=== PATIENT | male | born 1970 | race American Indian/Alaskan Native ===

== ENCOUNTER 2018-02-27 01:04 | Emergency (ER) | payer SELFPAY ==
[2018-02-27 05:51] VITALS: BP 139/81
--- NOTE | 2018-02-27 06:07 | Emergency Department Report ---
ED General Adult HPI - General Chief complaint: Headache Stated complaint: DIZZINESS; BLURRED VISION; RAPID HEARTBEAT Time Seen by Provider: 02/27/18 06:03 Source: patient Mode of arrival: Ambulatory Limitations: No Limitations - History of Present Illness Initial comments: 47-year-old -[place] male comes in for evaluation of chronic migraines causing blurred vision dizziness. Patient also reports that he has intermittent times that he feels his heart is racing he reports this depends on his body position and Karlee sitting in the chair. These symptoms have been going on for the last 5 years. Patient reports he has a past medical history as well as the current history of anxiety and depression. Patient reports that he is on BuSpar which she has not taken in the last few days. Patient reports he has a follow-up appointment in about a month at [facility] on [address] He denies any homicidal or suicidal ideation. Patient then reports that his blurred vision he feels is because he needs glasses. He reports that he was given glasses in the past but felt they were too strong and did not wear them anymore. -: year(s) (5) Severity scale (0 -10): 0 Consistency: intermittent Improves with: medication Worsens with: none Associated Symptoms: denies: nausea/vomiting Treatments Prior to Arrival: none - Related Data Home Medications Medication Instructions Recorded Confirmed Last Taken Cetirizine HCl [Zyrtec] 10 mg PO 02/02/14 02/02/14 Unknown Previous Rx's Medication Instructions Recorded Last Taken Type ALPRAZolam [Xanax TAB] 0.5 mg PO TID PRN #15 tab 09/17/15 Unknown Rx Escitalopram [Lexapro] 10 mg PO DAILY #20 tablet 09/17/15 Unknown Rx Ibuprofen [Motrin 600 MG tab] 600 mg PO Q8H PRN #30 tablet 02/27/18 Unknown Rx Allergies Allergy/AdvReac Type Severity Reaction Status Date / Time No Known Allergies Allergy Unverified 02/02/14 21:35 ED Review of Systems ROS: Stated complaint: DIZZINESS; BLURRED VISION; RAPID HEARTBEAT Other details as noted in HPI Constitutional: denies: chills, fever Eyes: denies: eye pain, eye discharge, vision change ENT: other (blurred vision not currently). denies: ear pain, throat pain Respiratory: denies: cough, shortness of breath, wheezing Cardiovascular: denies: chest pain, palpitations Endocrine: no symptoms reported Gastrointestinal: denies: abdominal pain, nausea, diarrhea Genitourinary: denies: urgency, dysuria Musculoskeletal: denies: back pain, joint swelling, arthralgia Skin: denies: rash, lesions Neurological: headache (no pain at this time). denies: weakness, paresthesias Psychiatric: anxiety (taken BuSpar prescribed by [place] [facility]), depression (followed by mental health at [place]). denies: auditory hallucinations, visual hallucinations, suicidal thoughts Hematological/Lymphatic: denies: easy bleeding, easy bruising ED Past Medical Hx - Past Medical History Previous Medical History?: Yes Hx Hypertension: Yes (does not take meds) Hx Headaches / Migraines: Yes Hx Psychiatric Treatment: Yes (anxiety) - Surgical History Past Surgical History?: No - Social History Smoking Status: Never Smoker Substance Use Type: None - Medications Home Medications: Home Medications Medication Instructions Recorded Confirmed Last Taken Type Cetirizine HCl [Zyrtec] 10 mg PO 02/02/14 02/02/14 Unknown History ALPRAZolam [Xanax TAB] 0.5 mg PO TID PRN #15 tab 09/17/15 Unknown Rx Escitalopram [Lexapro] 10 mg PO DAILY #20 tablet 09/17/15 Unknown Rx Ibuprofen [Motrin 600 MG tab] 600 mg PO Q8H PRN #30 tablet 02/27/18 Unknown Rx ED Physical Exam - General Limitations: No Limitations General appearance: alert, in no apparent distress - Head Head exam: Present: atraumatic, normocephalic - Eye Eye exam: Present: normal appearance - ENT ENT exam: Present: mucous membranes moist - Neck Neck exam: Present: normal inspection - Respiratory Respiratory exam: Present: normal lung sounds bilaterally. Absent: respiratory distress - Cardiovascular Cardiovascular Exam: Present: regular rate, normal rhythm. Absent: systolic murmur, diastolic murmur, rubs, gallop - GI/Abdominal GI/Abdominal exam: Present: soft, normal bowel sounds - Rectal Rectal exam: Present: deferred - Extremities Exam Extremities exam: Present: normal inspection - Back Exam Back exam: Present: normal inspection - Neurological Exam Neurological exam: Present: alert, oriented X3 - Psychiatric Psychiatric exam: Present: normal affect, normal mood - Skin Skin exam: Present: warm, dry, intact, normal color. Absent: rash ED Course Vital Signs 02/27/18 02/27/18 01:33 05:50 Temperature 98.1 F Pulse Rate 70 73 Respiratory 18 18 Rate Blood Pressure 137/83 Blood Pressure 139/81 [Right] O2 Sat by Pulse 98 98 Oximetry ED Medical Decision Making - Medical Decision Making Patient has been evaluated by this provider fast track. Discussed the patient he should keep his appointment at [facility] department. Instructed patient to discuss with his mental health provider how the medication is making him feel. Also discussed the patient that he's had these chronic issues for the last 5 years. That this is better worked up at her primary care to clinic. Discussed the patient I will refer him to [facility]. Patient verbalized understanding. Critical care attestation.: If time is entered above; I have spent that time in minutes in the direct care of this critically ill patient, excluding procedure time. ED Disposition Clinical Impression: Chronic migraine Disposition: DC-01 TO HOME OR SELFCARE Is pt being admited?: No Does the pt Need Aspirin: No Condition: Stable Instructions: Migraine Headache (ED) Additional Instructions: Please take ibuprofen as prescribed for headaches. Please follow up with [facility] I have listed their information below to follow up on your chronic conditions and concerns. Please keep your appointment at [facility] for medication adjustment. Prescriptions: Ibuprofen [Motrin 600 MG tab] 600 mg PO Q8H PRN #30 tablet PRN Reason: Pain Referrals: PRIMARY CARE, [Primary Care Provider] - 3-5 Days [facility] [Provider Group] - 3-5 Days Forms: Work/School Release Form(ED)
== END 2018-02-27 06:20 | disposition home or self-care (01) ==
LOC: ED 01:04
DX: G43.909 Migraine, unspecified, not intractable, without status migrainosus (principal); I10 Essential (primary) hypertension
CPT/HCPCS: 99282